=== PATIENT | male | born 1990 | race Caucasian/White ===

== ENCOUNTER 2024-04-27 04:10 | Emergency (ER) | payer BC ==
[~2024-04-27] VITALS: Ht 195.6 cm; Wt 150.0 kg
[2024-04-27 04:20] VITALS: BP 155/102; PULSE 102; RESP 22; TEMP 99; O2SAT 98
[2024-04-27] MEDS ORDERED: MAGNESIUM/ALUMINUM HYDROXIDE/SIMETHICONE 30ML UDC PO STA (04:28)
[2024-04-27] MEDS ORDERED: KETOROLAC 30MG/ML VIAL IV STA (04:28)
[2024-04-27] MEDS ORDERED: ONDANSETRON HCL 4MG/2ML INJ IV STA (04:28)
[2024-04-27] MEDS ORDERED: SODIUM CHLORIDE 0.9% 1,000 ML IV ONE (04:30)
[2024-04-27 04:45] LABS: BASOPHILS % 0.3 % (0.0-2.0); DIFFERENTIAL COMMENT 0; EOSINOPHILS % 1.9 % (0.0-5.0); HEMATOCRIT. 44.9 % (42.0-52.0); LYMPHOCYTES % 19.5 % (20.0-50.0); MEAN CORPUSCULAR HEMOGLOBIN 31.7 pg (28.0-32.0); MEAN CORPUSCULAR HGB CONC 35.7 g/dL (31.0-37.0); MEAN CORPUSCULAR VOLUME 88.8 fL (80.0-94.0); MEAN PLATELET VOLUME 7.8 fl (7.4-10.4); MONOCYTES % 3.9 % (2.0-8.0); NEUTROPHILS % 74.4 % (40.0-76.0); PLATELET 185 x1000/uL (130-400); RED BLOOD CELL COUNT 5.06 mill/uL (4.7-6.1); RED CELL DISTRIBUTION WIDTH 13.1 % (11.6-14.6); WHITE BLOOD COUNT 6.2 x1000/uL (4.5-11.0)
[2024-04-27 04:50] LABS: CARBON DIOXIDE 26 mEq/L (21-32); CHLORIDE 105 mEq/L (98-107); POTASSIUM 3.2 mEq/L (3.5-5.1); SODIUM 140 mEq/L (136-145)
[2024-04-27 04:55] LABS: CREATININE 1.3 mg/dL (0.6-1.3)
[2024-04-27 04:56] LABS: GLUCOSE 205 mg/dL (70-105); UREA NITROGEN BLOOD 14 mg/dL (9-23)
[2024-04-27 04:57] LABS: ALANINE AMINOTRANSFERASE 38 IU/L (10-49); ALBUMIN 4.8 g/dL (3.2-4.8); ASPARTATE AMINOTRANSFERASE 31 IU/L (<34)
[2024-04-27 04:58] LABS: BILIRUBIN DIRECT 0.3 mg/dL (<=3.0); PROTEIN TOTAL 7.4 g/dL (6.0-8.3)
[2024-04-27 05:00] LABS: ETHANOL BLOOD < 10 mg/dL (<10)
== END 2024-04-27 05:39 | disposition left against medical advice (07) ==
LOC: ER 04:10
DX: R10.84 Generalized abdominal pain (principal); R19.7 Diarrhea, unspecified; Z53.21 Procedure and treatment not carried out due to patient leaving prior to being seen by health care provider
CPT/HCPCS: 80076; 80048; 80320; 83690; 85025; 85610; 36415; J7030; 99283; G0480